=== PATIENT | male | born 1930 | race Caucasian/White ===

== ENCOUNTER 2021-01-02 15:19 | Outpatient (CLI) | payer MEDICARE, MEDICAID | END 2021-01-02 15:20 | disposition short-term general hospital (02) | LOC: EMS 15:19 | DX: I48.92 Unspecified atrial flutter (principal) | CPT/HCPCS: A0425; A0427 ==

== ENCOUNTER 2022-04-30 17:05 | Outpatient (CLI) | payer MEDICARE, MEDICAID | END 2022-04-30 17:06 | disposition critical access hospital (66) | LOC: EMS 17:05 | DX: R06.00 Dyspnea, unspecified (principal); R11.0 Nausea; R53.1 Weakness; R45.89 Other symptoms and signs involving emotional state | CPT/HCPCS: A0425; A0429 ==